=== PATIENT | male | born 1980 | race Caucasian/White ===

== ENCOUNTER 2021-04-04 14:57 | Emergency (ER) | payer BC, SELFPAY ==
--- NOTE | ~2021-04-04 | CT_ITS ---
EXAMINATION: CT abdomen pelvis wo con EXAM DATE: 04/04/2021 15:36 INDICATION: Left flank pain. History kidney stones. TECHNIQUE: Spiral CT of the abdomen and pelvis was performed without contrast. Axial, coronal and sag ittal images were reviewed. The dose-length product (DLP) for this examination was 1550.93 mGy-cm. The exposure was tailored according to patient size (auto mA exposure control), and iterative reconst ruction (ASIR) was used as additional dose reduction technique. There is no prior study for comparis on. FINDINGS: There is a 4 mm stone in the distal aspect left ureter, 3 centimeters from the ureterovesic ular junction. There is mild left-sided hydronephrosis. Additional punctate 2 mm left inferior calyce al stone. No right nephrolithiasis. The prostate is unremarkable. The bladder is unremarkable. The liver, spleen, adrenal glands and pancreas are unremarkable. Gallbladder is unremarkable. No biliar y obstruction. There is no retroperitoneal or pelvic lymphadenopathy. Small to moderate right ingu inal, small left inguinal fat-containing hernias. The appendix is normal. The stomach and small bowel are unremarkable. There is expected amount of c olonic stool. No free intraperitoneal gas. The heart is normal in size. There are no pericardial or pleural effusions. The lung bases are unremarkable. There are no osteoblastic or osteolytic les ions identified. IMPRESSION: 1. Left distal ureteral 4 mm stone, mild hydronephrosis. Urologist would appreciate baseline KUB. 2. Punctate left nephrolithiasis. 3. Inguinal fat-containing hernias right larger than left Reviewed, dictated and finalized at location [facility]. IMPRESSION: 1. Left distal ureteral 4 mm stone, mild hydronephrosis. Urologist would appre ciate baseline KUB. 2. Punctate left nephrolithiasis. 3. Inguinal fat-containing hernias right larger than left
[2021-04-04 15:00] VITALS: BP 159/113; PULSE 107; RESP 16; TEMP 36.8; O2SAT 98
[2021-04-04] MEDS: KETOROLAC 30 MG/ML VIAL (*BKC) IV PUSH (15:31)
[2021-04-04] MEDS: SODIUM CHLORIDE 0.9% IV 1,000 ML 999 ML IV CONT (15:32)
[2021-04-04 15:33] LABS: Add Urine Microscopic? YES; Appearance Urine Turbid (Clear); Basophils Absolute Auto 0.02 K/mm3 (0.00-0.10); Basophils Percent Auto 0.2 % (0.0-1.0); Bilirubin Urine 1+ (Negative); Blood Urine 3+ (Negative); Color Urine Brown (Yellow); Eosinophils Absolute Auto 0.09 K/mm3 (0.02-0.50); Eosinophils Percent Auto 0.9 % (1.0-6.0); Glucose Urine UA Negative (Negative); Hematocrit 42.5 % (40.0-54.0); Hemoglobin 14.3 g/dL (14.0-18.0); Immature Granulocyte Absolute 0.02 K/mm3 (0.00-0.00); Immature Granulocyte Percent A 0.2 % (0.0-0.0); Ketones Urine Negative (Negative); Leukocyte Esterase Ur Negative (Negative); Lymphocytes Absolute Auto 2.42 K/mm3 (1.10-4.50); Lymphocytes Percent Auto 25.2 % (18.0-42.0); Mean Corpuscular HGB Conc 33.6 g/dL (32.0-36.0); Mean Corpuscular Hemoglobin 27.3 pg (27.0-31.0); Mean Corpuscular Volume 81.1 fL (78.0-102.0); Mean Platelet Volume 9.8 fl (8.7-11.0); Monocytes Absolute Auto 0.57 K/mm3 (0.10-0.90); Monocytes Percent Auto 5.9 % (2.0-11.0); Neutrophils Absolute Auto 6.5 K/mm3 (1.7-7.2); Neutrophils Percent Auto 67.6 % (50.0-70.0); Nitrate Urine Negative (Negative); Platelet Count Result 239 K/mm3 (150-420); Protein Urine 2+ (Negative); Red Blood Count 5.24 M/mm3 (4.70-6.10); Red Cell Distribution Width 13.9 % (11.6-14.4); Specific Grav Ur >= 1.030 (1.010-1.020); White Blood Count 9.6 K/mm3 (4.8-10.8); pH Urine 5.5 (5.0-8.0)
[2021-04-04 15:46] LABS: Bacteria Urine 2+ /hpf; Mucus Urine Heavy /lpf; RBC Urine >75 /hpf (0-2); Squamous Epithelial Cell Urine Occasional /hpf (Few); WBC Urine 0-3 /hpf (0-3)
[2021-04-04 15:51] LABS: Alanine Aminotransferase 48 U/L (16-63); Albumin Level 4.2 g/dL (3.4-5.0); Alkaline Phosphatase 99 U/L (46-116); Anion Gap 15 mmol/L (8-16); Aspartate Amino Transferase 20 U/L (15-37); Bilirubin,Total 1.1 mg/dL (0.00-1.00); Calcium 8.9 mg/dL (8.5-10.1); Carbon Dioxide 24 mmol/L (21-32); Chloride 104 mmol/L (98-108); Estimated CRCL calculation 120 ml/min; Estimated Glomerular Filt Rate > 60; Glucose 100 mg/dL (70-99); Sodium 143 mmol/L (136-145); Total Protein 7.8 g/dL (6.4-8.2)
--- NOTE | 2021-04-04 16:12 | ED.MALEGU ---
HPI - Male Genitourinary General Chief complaint: Urogenital-Male Stated complaint: possible kidney stone Source: patient Mode of arrival: ambulatory Limitations: no limitations History of Present Illness HPI Narrative: this is 40-year-old male with a history of kidney stones last kidney stone approximately 5 years ago, currently having left flank pain radiating into his left groin area with some dysuria, currently chills with no fevers no shortness of breath no nausea or vomiting patient has tried [id number] pain medication with minimal relief, rates his pain about a 7/10. Onset (ago): day(s) Duration: constant Severity: moderate Severity scale (1-10): 7 Quality: dull Related Data Home Medications Medication Instructions Recorded Confirmed atorvastatin 20 mg PO DAILY 04/04/21 04/04/21 hydrochlorothiazide 12.5 mg PO DAILY 04/04/21 04/04/21 lisinopril 10 mg PO DAILY 04/04/21 04/04/21 sertraline 50 mg PO DAILY 04/04/21 04/04/21 Allergies Allergy/AdvReac Type Severity Reaction Status Date / Time No Known Allergies Allergy Unverified 10/22/16 16:37 Review of Systems Review of Systems: All systems reviewed & are unremarkable except as noted in HPI and below [facility] Past Medical History Medical History Kidney stone on left side Exam Const: General: no acute distress and alert Limitations: altered mental status HENMT: Head: normal to inspection Eyes: Conjunctivae: conjunctivae normal Pupils: Equal, round and reactive pupils present EOM: EOMs intact bilaterally Neck: Neck: normal visual inspection, no lymphadenopathy and no meningeal signs Chest: Chest palpation & inspection: normal inspection of the chest Resp: Effort & Inspection: normal respiratory effort Auscultation: clear to auscultation bilaterally Cardio: Rate: regular rate Rhythm: regular rhythm GI: GI Palp: Yes Soft to palpation and Yes Tenderness to palpation present (GI) : General: Yes CVA tenderness ( left flank) Urinary Catheter: Urinary Catheter: urine dark Back/Spine/Pelvis: Back: CVA tenderness Skin: General skin exam: normal color Rashes: no rashes Neuro: General: patient oriented x3, moves all extremities and no meningeal signs Psych: Appearance: grossly normal Mental Status: mental status grossly normal Affect: normal affect Course Course Emergency Course: patient received IV fluids and IV Toradol pain has some improved, CT findings and labs were reviewed with patient and does have a 4mm stone in the left distal ureter. Vital Signs Vital signs: Vital Signs Temperature 36.8 C 04/04/21 15:00 Pulse Rate 107 H 04/04/21 15:00 Respiratory Rate 16 04/04/21 15:00 Blood Pressure 159/113 H 04/04/21 15:00 Pulse Oximetry 98 04/04/21 15:00 Temperature 36.8 C 04/04/21 15:00 Pulse Rate 107 H 04/04/21 15:00 Respiratory Rate 16 04/04/21 15:00 Blood Pressure 159/113 H 04/04/21 15:00 Pulse Oximetry 98 04/04/21 15:00 MDM - Male Genitourinary Lab Data Result diagrams: 04/04/21 15:26 04/04/21 15:26 Labs: Lab Results 04/04/21 04/04/21 04/04/21 Range/Units 15:26 15:26 15:26 WBC 9.6 (4.8-10.8) K/mm3 RBC 5.24 (4.70-6.10) M/mm3 Hgb 14.3 (14.0-18.0) g/dL Hct 42.5 (40.0-54.0) % MCV 81.1 (78.0-102.0) fL MCH 27.3 (27.0-31.0) pg MCHC 33.6 (32.0-36.0) g/dL RDW 13.9 (11.6-14.4) % Plt Count 239 (150-420) K/mm3 MPV 9.8 (8.7-11.0) fl Immature Gran % (Auto) 0.2 H (0.0-0.0) % Neut % (Auto) 67.6 (50.0-70.0) % Lymph % (Auto) 25.2 (18.0-42.0) % Mobile % (Auto) 5.9 (2.0-11.0) % Eos % (Auto) 0.9 L (1.0-6.0) % Baso % (Auto) 0.2 (0.0-1.0) % Lymph # (Auto) 2.42 (1.10-4.50) K/mm3 Mobile # (Auto) 0.57 (0.10-0.90) K/mm3 Eos # (Auto) 0.09 (0.02-0.50) K/mm3 Baso # (Auto) 0.02 (0.00-0.10) K/mm3 Abs Immat Gran (auto) 0.02 H
[2021-04-04 16:17] VITALS: BP 150/78; PULSE 92; RESP 19; O2SAT 98
[2021-04-04 16:37] VITALS: BP 152/88; PULSE 88; RESP 18; TEMP 36.6; O2SAT 98
[2021-04-04 17:14] LABS: Blood Urea Nitrogen 16 mg/dL (7-18); Osmolality Calculated 297 mOsm/kg (285-295)
== END 2021-04-04 16:38 | disposition home or self-care (01) ==
PROVIDERS: Emergency Provider Emergency Medicine; PCP Family Medicine
DX: N20.0 Calculus of kidney (principal)
CPT/HCPCS: 36415; 74176; 80053; 81001; 85025; 96361; 96374; 99283; 99284; J1885; J7030

== ENCOUNTER 2022-02-26 05:44 | Emergency (ER) | payer BC, SELFPAY ==
--- NOTE | ~2022-02-26 | CT_ITS ---
EXAMINATION: CT abdomen pelvis wo con DATE: 02/26/2022 06:22 INDICATION: Left flank pain for 3 hours. Hematuria. History of stones. TECHNIQUE: Computed tomography (CT) of the abdomen and pelvis was performed without intravenous contr ast. Automated exposure control and iterative reconstruction technique were employed. Exam dose: 841 .34 mGy-cm total exam DLP. COMPARISON: 04/04/2021 CT abdomen pelvis FINDINGS: 3 mm distal left ureteral calculus is noted with mild left hydroureteronephrosis. 4 mm nonobstructing lower pole left renal calculus. No other urinary tract calculus. The lung bases are clear. Heart size is within normal range. No pericardial or pleural effusion. The liver, gallbladder, bile ducts, pancreas, pancreatic duct and spleen are unremarkable. Normal morphology of the adrenal glands. No renal mass lesion is evident. Normal caliber of the abdominal aorta. No intraperitoneal or retroperitoneal or pelvic mass lesion or adenopathy or ascites. The prostate gland and urinary bladder are unremarkable. Bilateral fat-containing inguinal hernias, larger on the right. Normal appendix. No bowel obstruction, bowel wall thickening, pneumatosis or intraperitoneal free air . Small fat-containing umbilical hernia. No suspicious osteolytic lesions. Moderately severe degenerative disc disease at L5-S1. IMPRESSION: 3 mm obstructing distal left ureteral stone with mild left hydroureteronephrosis Nonobstructing lower pole 4 mm left renal calculus Bilateral fat-containing inguinal hernias, right greater than left Reviewed, dictated and finalized at [facility]. Reviewed, dictated and finalized at location [facility]. IMPRESSION: 3 mm obstructing distal left ureteral stone with mild left hydrour eteronephrosis Nonobstructing lower pole 4 mm left renal calculus Bilateral fat-containing inguinal hernias, right greater than left
[2022-02-26 05:45] VITALS: BP 137/81; PULSE 88; RESP 18; TEMP 36.9; O2SAT 98
[2022-02-26] MEDS: ONDANSETRON HCL ODT 4 MG TABLET PO (06:06)
[2022-02-26] MEDS: KETOROLAC (*BKC) 60 MG/2 ML VIAL IM (06:06)
[2022-02-26 06:10] LABS: Hematocrit 42.4 % (40.0-54.0); Mean Corpuscular Hemoglobin 27.4 pg (27.0-31.0); Mean Platelet Volume 9.9 fl (8.7-11.0); Platelet Count Result 233 K/mm3 (150-420); Red Blood Count 5.11 M/mm3 (4.70-6.10); White Blood Count 8.6 K/mm3 (4.8-10.8)
[2022-02-26 06:13] LABS: Add Urine Microscopic? YES; Appearance Urine Cloudy (Clear); Bilirubin Urine Negative (Negative); Blood Urine 3+ (Negative); Color Urine Yellow (Yellow); Glucose Urine UA 2+ (Negative); Ketones Urine Negative (Negative); Leukocyte Esterase Ur Negative (Negative); Nitrate Urine Negative (Negative); Protein Urine Trace (Negative); Specific Grav Ur >= 1.030 (1.010-1.020)
[2022-02-26 06:20] LABS: Bacteria Urine Trace /hpf; Mucus Urine Rare /lpf; RBC Urine >75 /hpf (0-2); Squamous Epithelial Cell Urine None seen /hpf (Few); WBC Urine 0-3 /hpf (0-3)
[2022-02-26 06:26] LABS: Alanine Aminotransferase 52 U/L (16-63); Albumin Level 3.8 g/dL (3.4-5.0); Alkaline Phosphatase 103 U/L (46-116); Anion Gap 7 mmol/L (8-16); Aspartate Amino Transferase 30 U/L (15-37); Bilirubin,Total 0.9 mg/dL (0.00-1.00); Blood Urea Nitrogen 13 mg/dL (7-18); CRP 0.8 mg/dL (0.0-0.9); Calcium 8.7 mg/dL (8.5-10.1); Carbon Dioxide 26 mmol/L (21-32); Chloride 104 mmol/L (98-108); Estimated CRCL calculation 123 ml/min; Estimated Glomerular Filt Rate > 60; Glucose 128 mg/dL (70-99); Osmolality Calculated 286 mOsm/kg (285-295); Potassium 3.9 mmol/L (3.5-5.1); Sodium 137 mmol/L (136-145); Total Protein 7.4 g/dL (6.4-8.2)
--- NOTE | 2022-02-26 06:35 | ED.ABDPAIN ---
HPI - Abdominal Pain General Chief Complaint: Nausea/Vomiting/Diarrhea Stated Complaint: possible kidney stone Time Seen by Provider: 02/26/22 06:00 Source: patient and RN notes reviewed Mode of arrival: ambulatory Limitations: no limitations History of Present Illness HPI narrative: Patient states he had some pain yesterday that went away and then it came back more severe at 3:00 a.m. this morning. MD elicited complaint: flank pain Pertinent past history: kidney stones Onset (ago): day(s) (1) Pain Consistency: intermittent Location: L flank Severity: moderate Quality: stabbing and sharp Radiation: none Migration to: no migration Exacerbating factors: movement Relieving factors: nothing Associated symptoms: nausea and vomiting Related Data Home Medications Medication Instructions Recorded Confirmed atorvastatin 20 mg tablet 20 mg PO DAILY 04/04/21 02/26/22 hydrochlorothiazide 12.5 mg tablet 12.5 mg PO DAILY 04/04/21 02/26/22 lisinopril 10 mg tablet 10 mg PO DAILY 04/04/21 02/26/22 sertraline 50 mg tablet 50 mg PO DAILY 04/04/21 02/26/22 Allergies Allergy/AdvReac Type Severity Reaction Status Date / Time No Known Allergies Allergy Verified 02/26/22 05:58 Review of Systems Review of Systems: All systems reviewed & are unremarkable except as noted in HPI and below PMFSH Past Medical History Medical History (Updated 02/26/22 @ 06:45 by Aryan Epps MD) Kidney stone on left side Surgical History Surgical History (Updated 02/26/22 @ 06:42 by Aryan Epps MD) H/O hand surgery H/O lithotripsy Exam Const: General: healthy appearing, no acute distress and alert Nutritional Appearance: well nourished and obese centrally obese Orientation/consciousness: patient oriented x3 Limitations: no limitations HENMT: Head: normal to inspection Ears: external ears normal Eyes: Conjunctivae: conjunctivae normal Pupils: Equal, round and reactive pupils present EOM: EOMs intact bilaterally Neck: Neck: normal visual inspection Resp: Effort & Inspection: normal respiratory effort Auscultation: clear to auscultation bilaterally Cardio: Rate: regular rate Rhythm: regular rhythm GI: GI Palp: Yes Soft to palpation and Yes Tenderness to palpation present (GI) Auscultation: normal bowel sounds Back/Spine/Pelvis: Back: CVA tenderness ( moderate on the left) Cervical Spine: cervical ROM normal Thoracic/Lumbar Spine: thoraco-lumbar ROM normal Skin: General skin exam: normal color Rashes: no rashes Wounds: no wounds Neuro: General: patient oriented x3, moves all extremities, no focal motor deficits and CN's II-XI intact bilaterally Speech: normal speech Gait exam (Neuro): Normal gait present Extrem: General: normal to inspection and no clubbing, cyanosis or edema Psych: Mental Status: mental status grossly normal Affect: normal affect Attitude: cooperative Course Vital Signs Vital signs: Vital Signs Temperature 36.9 C 02/26/22 05:45 Pulse Rate 88 02/26/22 05:45 Respiratory Rate 18 02/26/22 05:45 Blood Pressure 137/81 02/26/22 05:45 Pulse Oximetry 98 02/26/22 05:45 Oxygen Delivery Room Air 02/26/22 05:45 Temperature 36.9 C 02/26/22 05:45 Pulse Rate 88 02/26/22 05:45 Respiratory Rate 18 02/26/22 05:45 Blood Pressure 137/81 02/26/22 05:45 Pulse Oximetry 98 02/26/22 05:45 Oxygen Delivery Room Air 02/26/22 05:45 MDM - Abdominal Pain Lab Data Result diagrams: 02/26/22 06:06 02/26/22 06:06 Labs: Lab Results 02/26/22 02/26/22 02/26/22 Range/Units 06:06 06:06 06:06 WBC 8.6 (4.8-10.8) K/mm3 RBC 5.11 (4.70-6.10) M/mm3 Hgb 14.0 (14.0-18.0) g/dL Hct 42.4 (40.0-54.0) % MCV 83.0 (78.0-102.0) fL MCH 27.4 (27.0-31.0) pg MCHC 33.0 (32.0-36.0) g/dL RDW 14.0 (11.6-14.4) % Plt Count 233 (150-420) K/mm3 MPV 9.9 (8.7-11.0) fl Sodium 137 (136-145) mmol/L Potassium
[2022-02-26 07:13] VITALS: BP 116/56; PULSE 72; RESP 17; TEMP 36.6; O2SAT 97
== END 2022-02-26 07:15 | disposition home or self-care (01) ==
PROVIDERS: Emergency Provider Emergency Medicine; PCP Family Medicine
DX: N20.0 Calculus of kidney (principal)
CPT/HCPCS: 36415; 74176; 80053; 81001; 85027; 86140; 96372; 99284; A9270; J1885

== ENCOUNTER 2023-08-14 17:57 | Emergency (ER) | payer BC, SELFPAY ==
--- NOTE | ~2023-08-14 | CT_ITS ---
EXAMINATION: CT abdomen pelvis wo con DATE: 08/14/2023 18:31 INDICATION: LUQ abdominal pain/HX OF STONES TECHNIQUE: Computed tomography (CT) of the abdomen and pelvis was performed without intravenous contr ast. Automated exposure control and iterative reconstruction technique were employed. The dose-length product was 1625.20 mGy-cm. COMPARISON: 02/26/2022. FINDINGS: Lower thorax: Unremarkable Liver: Normal. Biliary/Gallbladder: Gallbladder is normal. No bile duct dilation. Pancreas: No mass or duct dilation. Spleen: Normal. Adrenals:No mass. Kidneys: No suspicious mass, obstructing stone, or hydronephrosis. Nonobstructing stones in the left right midpole. GI tract: No small or large bowel dilation. Normal appendix. Mesentery/Peritoneum: No ascites, mass, or free air. Retroperitoneum: No mass. Pelvis: Pelvic organs are within normal limits. Soft Tissues: Uncomplicated bilateral fat-containing inguinal hernias. Bones: No acute osseous finding. IMPRESSION: Bilateral nonobstructive nephrolithiasis. No CT evidence of obstructive uropathy finding that would explain left upper quadrant pain. Reviewed, dictated and finalized at location [facility]. EDWARDS IMPRESSION: Bilateral nonobstructive nephrolithiasis. No CT evidence of obstructive uropathy finding that would explain left upper qu adrant pain.
[2023-08-14 17:58] VITALS: BP 142/75; PULSE 75; RESP 19; TEMP 36.3; O2SAT 98
[2023-08-14 18:02] VITALS: BP 142/75; PULSE 75; RESP 19; TEMP 36.3; O2SAT 98
--- NOTE | 2023-08-14 18:12 | ED.ABDPAIN ---
HPI - Abdominal Pain General Chief Complaint: Abdominal Pain Stated Complaint: abdominal pain Time Seen by Provider: 08/14/23 18:01 History of Present Illness HPI narrative: This is a 42-year-old male with history of kidney stones, who presents emergency department complaining of left upper quadrant abdominal pain since last night. The patient describes the pain as dull, rated 5/10 and constant, beginning in the upper left abdomen with some radiation towards the left lower chest. He states this feels similar to previous kidney stones, however the pain is not moved towards his back. He denies nausea, vomiting, dysuria, hematuria or other changes in his health. Related Data Home Medications Medication Instructions Recorded Confirmed atorvastatin 20 mg tablet 20 mg PO DAILY 04/04/21 08/14/23 hydrochlorothiazide 12.5 mg tablet 12.5 mg PO DAILY 04/04/21 08/14/23 lisinopril 10 mg tablet 10 mg PO DAILY 04/04/21 08/14/23 sertraline 50 mg tablet 50 mg PO DAILY 04/04/21 08/14/23 Allergies Allergy/AdvReac Type Severity Reaction Status Date / Time No Known Allergies Allergy Verified 08/14/23 18:00 Review of Systems Review of Systems: CONSTITUTIONAL: Denies fever, chills, or sweats. CARDIOVASCULAR: Denies chest pain, palpitations, or edema. RESPIRATORY: Denies cough or dyspnea. GASTROINTESTINAL: Left upper quadrant abdominal pain denies nausea, vomiting, or diarrhea. GENITOURINARY: Denies dysuria or hematuria. SKIN: Denies rash or itching. MUSCULOSKELETAL: Denies back pain, joint pain, or myalgia. NEUROLOGIC: Denies headache, numbness, dizziness, or weakness. PSYCHIATRIC: Denies anxiety or depression. PMFSH Past Medical History Medical History Kidney stone on left side Surgical History Surgical History H/O hand surgery H/O lithotripsy Social History Social History (Updated 08/14/23 @ 18:15 by Bunny Pierce MD) Smoking status: Never smoker Alcohol intake: never Substance use: never Exam Narrative: GENERAL: Well-developed, well-nourished, and in no acute distress. HEAD: Normocephalic, atraumatic. EYES: PERRLA and EOMI. ENT: Nares clear, no rhinorrhea or epistaxis. Mucous membranes moist. Oropharynx without tonsillar hypertrophy exudate or other lesions. CHEST: Clear to auscultation. No respiratory distress. No wheezes rales or rhonchi HEART: Regular rate and rhythm. No murmur heard. Normal peripheral pulses. ABDOMEN: Soft, mild tenderness to palpation in the left upper quadrant, without rebound or guarding, nondistended, normal active bowel sounds. No CVA tenderness to palpation EXTREMITIES: Normal range of motion. No edema. SKIN: Warm, dry, no rash. NEURO: Alert and oriented x3. Moving all 4 limbs purposefully. PSYCH: Normal mood and affect. Course Course Emergency Course: 19:40 - CT abdomen pelvis demonstrates bilateral nephrolithiasis without ureteral stone or other acute changes that could explain the patient's pain. CBC demonstrates mild anemia with hemoglobin 13.3 and slight neutrophil shift of 71% but is otherwise unremarkable. Chemistries demonstrate mild total bilirubin elevation at 1.8 but is otherwise unremarkable. UA demonstrates 1+ bacteria with squamous cells but is not concerning for significant hematuria or urinary tract infection. On reevaluation, the patient states his pain is improved. The cause of the patient's pain is unclear. Will discharge with a PPI and recommendation for primary care follow-up. Discussed return and emergency precautions including signs/symptoms of ACS and acute abdomen. The patient voiced understanding and is comfortable with the plan. All questions answered to his satisfaction. Vital Signs Vital signs: Vital Signs Oxygen Delivery Room Air 08/14/23 17:57 Temperature 97.4 F L 08/14/23 18:02 Pulse Rate 75 08/14/23 18
[2023-08-14] MEDS: MAG HYDROX/ALUMINUM HYD/SIMETH 30 ML, PHENobarb/HYOSCY/ATROPINE/SCOP 32.4 MG, LIDOCAINE... PO (18:19)
[2023-08-14] MEDS: ACETAMINOPHEN 500 MG TABLET 1000 MG PO (18:19)
[2023-08-14] MEDS: SODIUM CHLORIDE 0.9% IV 1,000 ML 999 ML IV CONT (18:23)
[2023-08-14 18:25] LABS: Basophils Absolute Auto 0.02 K/mm3 (0.00-0.10); Basophils Percent Auto 0.2 % (0.0-1.0); Eosinophils Absolute Auto 0.11 K/mm3 (0.02-0.50); Eosinophils Percent Auto 1.1 % (1.0-6.0); Hemoglobin 13.3 g/dL (14.0-18.0); Immature Granulocyte Absolute 0.04 K/mm3 (0.00-0.00); Immature Granulocyte Percent A 0.4 % (0.0-0.0); Lymphocytes Absolute Auto 2.09 K/mm3 (1.10-4.50); Lymphocytes Percent Auto 21.2 % (18.0-42.0); Mean Corpuscular HGB Conc 33.3 g/dL (32.0-36.0); Mean Corpuscular Hemoglobin 27.1 pg (27.0-31.0); Mean Corpuscular Volume 81.5 fL (78.0-102.0); Mean Platelet Volume 9.5 fl (8.7-11.0); Monocytes Absolute Auto 0.57 K/mm3 (0.10-0.90); Monocytes Percent Auto 5.8 % (2.0-11.0); Neutrophils Percent Auto 71.3 % (50.0-70.0); Platelet Count Result 217 K/mm3 (150-420); Red Blood Count 4.91 M/mm3 (4.70-6.10); Red Cell Distribution Width 13.9 % (11.6-14.4); White Blood Count 9.8 K/mm3 (4.8-10.8)
[2023-08-14 18:41] LABS: Anion Gap 7 mmol/L (8-16); Blood Urea Nitrogen 16 mg/dL (7-18); Carbon Dioxide 31 mmol/L (21-32); Chloride 101 mmol/L (98-108); Estimated CRCL calculation 109 ml/min; Estimated Glomerular Filt Rate > 60; Glucose 89 mg/dL (70-99); Osmolality Calculated 288 mOsm/kg (285-295); Potassium 3.5 mmol/L (3.5-5.1); Sodium 139 mmol/L (136-145)
[2023-08-14 18:42] LABS: Alanine Aminotransferase 44 U/L (16-63); Albumin Level 3.7 g/dL (3.4-5.0); Alkaline Phosphatase 111 U/L (46-116); Aspartate Amino Transferase 36 U/L (15-37); Bilirubin,Total 1.8 mg/dL (0.00-1.00); Calcium 8.9 mg/dL (8.5-10.1); Lipase 51 U/L (16-77); Total Protein 7.1 g/dL (6.4-8.2)
--- NOTE | 2023-08-14 18:59 | PC.NURSE ---
PT IS LYING ON STRETCHER WITH AT BEDSIDE. PT HAS IVF INFUSING WITHOUT DIFFICULTY. PT REPORTS MILD IMPROVEMENT OF PAIN. PT IS AWAITING RESULTS AT THIS TIME. PT DENIES ANY NEEDS OR COMPLAINTS. REPORT TO LAVERNE ELIZALDE.
[2023-08-14 19:07] VITALS: BP 134/81; PULSE 84; RESP 20; O2SAT 98
[2023-08-14] MEDS: KETOROLAC 30 MG/ML VIAL (*BKC) IV PUSH (19:17)
[2023-08-14 19:26] LABS: Appearance Urine Clear (Clear); Bilirubin Urine Negative (Negative); Blood Urine Negative (Negative); Color Urine Yellow (Yellow); Glucose Urine UA Negative (Negative); Ketones Urine Negative (Negative); Leukocyte Esterase Ur Negative LEU/UL (Negative); Nitrate Urine Negative (Negative); Protein Urine Trace (Negative); Specific Grav Ur >= 1.030 (1.010-1.020)
[2023-08-14 19:32] LABS: Add Urine Microscopic? YES; Bacteria Urine 1+ /hpf; RBC Urine 0-2 /hpf (0-2); Squamous Epithelial Cell Urine Few /hpf (Few); WBC Urine 0-3 /hpf (0-3)
[2023-08-14 19:33] LABS: Mucus Urine Moderate /lpf
[2023-08-14 19:49] VITALS: BP 130/81; PULSE 80; RESP 18; TEMP 36.8; O2SAT 98
== END 2023-08-14 19:53 | disposition home or self-care (01) ==
PROVIDERS: Emergency Provider Preventive Medicine Aerospace Medicine; PCP Family Medicine
DX: R10.12 Left upper quadrant pain (principal); K29.00 Acute gastritis without bleeding; Z79.899 Other long term (current) drug therapy
CPT/HCPCS: 36415; 74176; 80053; 81001; 83690; 85025; 96361; 96374; 99284; A9270; J1885; J7030

== ENCOUNTER 2023-09-25 06:43 | Emergency (ER) | payer BC, SELFPAY ==
--- NOTE | ~2023-09-25 | CT_ITS ---
EXAMINATION: CT abdomen pelvis wo con DATE: 09/25/2023 07:54 INDICATION: Right flank pain. TECHNIQUE: Computed tomography (CT) of the abdomen and pelvis was performed without intravenous contr ast. Automated exposure control and iterative reconstruction technique were employed. The dose-length product was 1641.08 mGy-cm. COMPARISON: CT abdomen and pelvis 08/14/2023 FINDINGS: The visualized portions of the lung bases demonstrate mild atelectasis. A calcified right l nathalia nodule is consistent with old granulomatous disease. No pleural effusion. The heart size is irene l. No pericardial effusion. There is diffuse hepatic steatosis. The gallbladder, spleen, pancreas, an d adrenal glands are normal. There is mild right hydronephrosis. There is a 4 mm stone in proximal ri ght ureter. There is a 5 mm stone in left kidney. There are bilateral inguinal hernias containing fat . The appendix is normal. There are no dilated loops of bowel. There are no pathologically enlarged l ymph nodes. There is no free intraperitoneal fluid. There is mild thoracic spondylosis. There is mode rate lower lumbar spondylosis. IMPRESSION: 1. 4 mm stone in proximal right ureter with mild right hydronephrosis. 2. Nonobstructing left kidney stone. Reviewed, dictated and finalized at location [facility]. R RELATIONS OFFICER
[2023-09-25 06:43] VITALS: BP 139/92; PULSE 91; RESP 20; TEMP 36.6; O2SAT 95
--- NOTE | 2023-09-25 07:31 | ED.MALEGU ---
HPI - Male Genitourinary General Chief complaint: Urogenital-Male Stated complaint: kidney stone Time Seen by Provider: 09/25/23 07:18 Source: patient Mode of arrival: ambulatory Limitations: no limitations History of Present Illness HPI Narrative: Patient is a 42-year-old male with known renal stones. He is here with right flank and back pain. MD Complaint: testicle pain Onset (ago): day(s) (1) Duration: constant and intermittent Location: right testicle Radiation: right testicle Severity: moderate Severity scale (1-10): 7 Quality: sharp Relieving factors: movement Exacerbating factors: movement Associated symptoms: Reports nausea/vomiting Related Data Home Medications Medication Instructions Recorded Confirmed atorvastatin 20 mg tablet 20 mg PO DAILY 04/04/21 09/25/23 hydrochlorothiazide 12.5 mg tablet 12.5 mg PO DAILY 04/04/21 09/25/23 lisinopril 10 mg tablet 10 mg PO DAILY 04/04/21 09/25/23 sertraline 50 mg tablet 50 mg PO DAILY 04/04/21 09/25/23 Allergies Allergy/AdvReac Type Severity Reaction Status Date / Time No Known Allergies Allergy Verified 09/25/23 07:43 Review of Systems Review of Systems: All systems reviewed & are unremarkable except as noted in HPI and below Constitutional: Constitutional: Reports no additional constitutional complaints Eyes: Eyes: Reports no additional eye complaints ENT: Reports system reviewed and no additional complaints, except as documented Cardiovascular: Cardiovascular: Reports no additional cardiovascular complaints Respiratory: Respiratory: Reports no additional respiratory complaints Gastrointestinal: Gastrointestinal: Reports no additional gastrointestinal complaints Genitourinary: Genitourinary: Reports no additional male genitourinary complaints Musculoskeletal: Musculoskeletal: Reports no additional musculoskeletal complaints Integumentary/Breasts: Skin/Breast: Reports system reviewed and no additional complaints, except as docu Neurologic: Reports system reviewed and no additional complaints, except as documented Psychiatric: Psychiatric: Reports no additional psychiatric complaints Endocrine: Endocrine: Reports no additional endocrine complaints Hematologic/Lymphatic: Hematologic/Lymphatic: Reports no additional hematologic/lymphatic complaints Allergic/Immunologic: Allergic/Immunologic: Reports no additional allergic/immunologic complaints PMFSH Past Medical History Medical History Kidney stone on left side Surgical History Surgical History H/O hand surgery H/O lithotripsy Social History Social History Smoking status: Never smoker Alcohol intake: never Substance use: never Exam Const: General: ill appearing Nutritional Appearance: well nourished Limitations: no limitations HENMT: Head: normal to inspection Ears: TM's normal bilaterally Face/Nose/Sinus: Normal external nose present Eyes: Conjunctivae: conjunctivae normal Pupils: Equal, round and reactive pupils present EOM: EOMs intact bilaterally Neck: Neck: normal visual inspection Chest: Chest palpation & inspection: normal inspection of the chest Resp: Effort & Inspection: normal respiratory effort and not labored Auscultation: clear to auscultation bilaterally and no crackles Cardio: Rate: regular rate Rhythm: regular rhythm Heart sounds: no murmurs GI: Inspection: non-distended GI Palp: Yes Soft to palpation, Yes Tenderness to palpation present (GI) (right lower quadrant and right flank and right back), No Guarding due to palpation present (GI), No Rigid due to palpation and No Hernia present Auscultation: normal bowel sounds : General: Yes bladder normal to palpation Back/Spine/Pelvis: Back: No no CVA tenderness and CVA tenderness (right) Skin: General skin exam: normal color Mike
[2023-09-25] MEDS: KETOROLAC 30 MG/ML VIAL (*BKC) IV PUSH (07:48)
[2023-09-25 07:51] LABS: Basophils Absolute Auto 0.01 K/mm3 (0.00-0.10); Basophils Percent Auto 0.2 % (0.0-1.0); Eosinophils Absolute Auto 0.01 K/mm3 (0.02-0.50); Eosinophils Percent Auto 0.2 % (1.0-6.0); Hematocrit 44.3 % (40.0-54.0); Hemoglobin 14.7 g/dL (14.0-18.0); Immature Granulocyte Absolute 0.02 K/mm3 (0.00-0.00); Immature Granulocyte Percent A 0.3 % (0.0-0.0); Lymphocytes Absolute Auto 0.62 K/mm3 (1.10-4.50); Lymphocytes Percent Auto 9.4 % (18.0-42.0); Mean Corpuscular HGB Conc 33.2 g/dL (32.0-36.0); Mean Corpuscular Hemoglobin 27.2 pg (27.0-31.0); Mean Corpuscular Volume 81.9 fL (78.0-102.0); Mean Platelet Volume 9.2 fl (8.7-11.0); Monocytes Percent Auto 6.1 % (2.0-11.0); Neutrophils Absolute Auto 5.5 K/mm3 (1.7-7.2); Neutrophils Percent Auto 83.8 % (50.0-70.0); Platelet Count Result 218 K/mm3 (150-420); Red Blood Count 5.41 M/mm3 (4.70-6.10); Red Cell Distribution Width 14.2 % (11.6-14.4); White Blood Count 6.6 K/mm3 (4.8-10.8)
[2023-09-25 08:10] LABS: Alanine Aminotransferase 44 U/L (16-63); Albumin Level 4.2 g/dL (3.4-5.0); Alkaline Phosphatase 107 U/L (46-116); Anion Gap 10 mmol/L (8-16); Aspartate Amino Transferase 21 U/L (15-37); Bilirubin,Total 2.4 mg/dL (0.00-1.00); Blood Urea Nitrogen 21 mg/dL (7-18); Calcium 9.4 mg/dL (8.5-10.1); Carbon Dioxide 28 mmol/L (21-32); Chloride 97 mmol/L (98-108); Estimated CRCL calculation 83 ml/min; Estimated Glomerular Filt Rate 52; Glucose 142 mg/dL (70-99); Lipase 45 U/L (16-77); Osmolality Calculated 285 mOsm/kg (285-295); Potassium 3.5 mmol/L (3.5-5.1); Sodium 135 mmol/L (136-145); Total Protein 7.9 g/dL (6.4-8.2)
[2023-09-25] MEDS: SODIUM CHLORIDE 0.9% IV 1,000 ML 999 ML IV CONT (08:21)
[2023-09-25] MEDS: TAMSULOSIN HCL 0.4 MG CAPSULE PO (08:22)
[2023-09-25 08:58] LABS: Appearance Urine Cloudy (Clear); Bilirubin Urine 1+ (Negative); Blood Urine 3+ (Negative); Glucose Urine UA Negative (Negative); Ketones Urine Trace (Negative); Leukocyte Esterase Ur Negative LEU/UL (Negative); Nitrate Urine Negative (Negative); Protein Urine 3+ (Negative); Specific Grav Ur >= 1.030 (1.010-1.020); pH Urine 5.5 (5.0-8.0)
[2023-09-25 09:07] LABS: Add Urine Microscopic? YES; Bacteria Urine 1+ /hpf; Color Urine Amber (Yellow); RBC Urine 21-50 /hpf (0-2)
[2023-09-25 09:26] VITALS: BP 116/56; PULSE 76; RESP 18; TEMP 36.8; O2SAT 100
--- NOTE | 2023-09-25 09:26 | PC.NURSE ---
PT HAS AT BEDSIDE, REPORTS PAIN REMAINS AT A 2. IVF HAVE COMPLETED. PT DENIES ANY NEEDS OR COMPLAINTS. PT HAS ONLY EATEN APPROX 1/4 CUPS OF THE ICE CHIPS PROVIDED. WILL CONTINUE TO MONITOR.
== END 2023-09-25 09:35 | disposition home or self-care (01) ==
PROVIDERS: Emergency Provider Emergency Medicine
DX: N20.0 Calculus of kidney (principal); Z79.899 Other long term (current) drug therapy
CPT/HCPCS: 36415; 74176; 80053; 81001; 83690; 85025; 96361; 96374; 99284; A9270; J1885; J7030

== ENCOUNTER 2023-09-26 15:29 | Emergency (ER) | payer BC, SELFPAY ==
[2023-09-26 15:30] VITALS: BP 127/74; PULSE 88; RESP 20; TEMP 36.8; O2SAT 98
--- NOTE | 2023-09-26 15:33 | ED.ABDPAIN ---
HPI - Abdominal Pain General Chief Complaint: Urogenital-Male Stated Complaint: right side flank pain, kidney stone Source: patient Mode of arrival: ambulatory Limitations: no limitations History of Present Illness HPI narrative: 42-year-old male with a history of dyslipidemia, recurrent kidney stones presented to the ER yesterday with -- right flank pain. CT of the abdomen and pelvis revealed a 4 mm stone in the right proximal ureter. His pain resolved with IV Toradol. The patient was also noted to have an elevated creatinine of 1.49. He was discharged home on Flomax and Columbia. He presents to the ER with -- ongoing right flank pain without any relief with Columbia. MD elicited complaint: flank pain Pertinent past history: kidney stones Onset (ago): day(s) ( 2 days) Pain Consistency: intermittent Location: R flank Severity: severe Quality: cramping Radiation: other ( pain radiates from the right flank to the right iliac fossa) Exacerbating factors: nothing Relieving factors: nothing Associated symptoms: nausea Related Data Home Medications Medication Instructions Recorded Confirmed atorvastatin 20 mg tablet 20 mg PO DAILY 04/04/21 09/25/23 hydrochlorothiazide 12.5 mg tablet 12.5 mg PO DAILY 04/04/21 09/25/23 lisinopril 10 mg tablet 10 mg PO DAILY 04/04/21 09/25/23 sertraline 50 mg tablet 50 mg PO DAILY 04/04/21 09/25/23 Allergies Allergy/AdvReac Type Severity Reaction Status Date / Time No Known Allergies Allergy Verified 09/25/23 07:43 Review of Systems Review of Systems: All systems reviewed & are unremarkable except as noted in HPI and below Constitutional: Constitutional: Reports as per HPI and Reports no additional constitutional complaints Eyes: Eyes: Reports as per HPI and Reports no additional eye complaints ENT: Reports system reviewed and no additional complaints, except as documented and Reports as per HPI Cardiovascular: Cardiovascular: Reports as per HPI and Reports no additional cardiovascular complaints Respiratory: Respiratory: Reports as per HPI and Reports no additional respiratory complaints Gastrointestinal: Gastrointestinal: Reports as per HPI, Reports no additional gastrointestinal complaints and Reports abdominal pain Genitourinary: Genitourinary: Reports no additional male genitourinary complaints Musculoskeletal: Musculoskeletal: Reports no additional musculoskeletal complaints and Reports as per HPI Integumentary/Breasts: Skin/Breast: Reports system reviewed and no additional complaints, except as docu and Reports as per HPI Neurologic: Reports system reviewed and no additional complaints, except as documented and Reports as per HPI Psychiatric: Psychiatric: Reports no additional psychiatric complaints and Reports as per HPI Endocrine: Endocrine: Reports no additional endocrine complaints and Reports as per HPI Hematologic/Lymphatic: Hematologic/Lymphatic: Reports no additional hematologic/lymphatic complaints and Reports as per HPI Allergic/Immunologic: Allergic/Immunologic: Reports no additional allergic/immunologic complaints and Reports as per HPI PMFSH Past Medical History Medical History Kidney stone on left side Surgical History Surgical History H/O hand surgery H/O lithotripsy Social History Social History Smoking status: Never smoker Alcohol intake: never Substance use: never Exam Const: General: no acute distress Nutritional Appearance: well nourished Orientation/consciousness: patient oriented x3 Limitations: no limitations HENMT: Head: normal to inspection Ears: external ears normal Face/Nose/Sinus: Normal external nose present Face and sinus: normal facial exam Mouth: Yes Normal oral and palatal mucosa present Throat: posterior oropharynx normal Eyes: Conjunctivae: conjunct
[2023-09-26 15:59] LABS: Hemoglobin 13.5 g/dL (14.0-18.0); Mean Corpuscular HGB Conc 33.8 g/dL (32.0-36.0); Mean Corpuscular Hemoglobin 27.4 pg (27.0-31.0); Mean Corpuscular Volume 81.1 fL (78.0-102.0); Mean Platelet Volume 8.9 fl (8.7-11.0); Platelet Count Result 193 K/mm3 (150-420); Red Blood Count 4.93 M/mm3 (4.70-6.10); Red Cell Distribution Width 13.9 % (11.6-14.4); White Blood Count 7.1 K/mm3 (4.8-10.8)
[2023-09-26] MEDS: TAMSULOSIN HCL 0.4 MG CAPSULE PO (16:06)
[2023-09-26] MEDS: KETOROLAC 30 MG/ML VIAL (*BKC) IV PUSH (16:06)
[2023-09-26 16:10] LABS: Anion Gap 6 mmol/L (8-16); Blood Urea Nitrogen 21 mg/dL (7-18); Calcium 8.9 mg/dL (8.5-10.1); Carbon Dioxide 30 mmol/L (21-32); Chloride 100 mmol/L (98-108); Estimated CRCL calculation 93 ml/min; Estimated Glomerular Filt Rate 60; Glucose 87 mg/dL (70-99); Osmolality Calculated 284 mOsm/kg (285-295); Potassium 3.3 mmol/L (3.5-5.1); Sodium 136 mmol/L (136-145)
[2023-09-26] MEDS: SODIUM CHLORIDE 0.9% IV 1,000 ML 999 ML IV CONT (16:12)
[2023-09-26 16:56] VITALS: BP 139/74; PULSE 78; RESP 20; TEMP 36.8; O2SAT 98
[2023-09-26] MEDS: POTASSIUM CHLORIDE 20 MEQ ER TABLET PO (16:56)
== END 2023-09-26 17:00 | disposition home or self-care (01) ==
PROVIDERS: Emergency Provider Internal Medicine Critical Care Medicine; PCP Nurse Practitioner
DX: N20.0 Calculus of kidney (principal)
CPT/HCPCS: 36415; 80048; 85027; 96374; 99284; A9270; J1885; J7030

== ENCOUNTER 2025-05-14 17:19 | Emergency (ER) | payer BC, SELFPAY ==
--- NOTE | ~2025-05-14 | XR_ITS ---
HISTORY: L elbow infection COMPARISON: None TECHNIQUE: 3 views of the left elbow were performed FINDINGS: No acute fracture is identified. No elevation of the anterior or posterior fat pads are identified to suggest a supracondylar fracture . Overlying soft tissues are unremarkable. Bone mineralization is age-appropriate. IMPRESSION: No acute fracture or dislocation, as detailed above. Reviewed, dictated and finalized at location A.
--- NOTE | ~2025-05-14 | CT_ITS ---
CT OF right femur EXAMINATION: CT femur RT w con DATE: 05/14/2025 21:24 INDICATION: Large right posterior thigh abscess TECHNIQUE: Computed tomography (CT) of the right femur was performed with 100 mL Omnipaque 350 intrav enous contrast. Automated exposure control and iterative reconstruction technique were employed. The dose-length product was 1141.10 mGy-cm. COMPARISON: None FINDINGS: Normal mineralization. No fracture or dislocation. Mild degenerative change in the right knee. 13 mm rim-enhancing dermal or subdermal fluid collection in the proximal, posteromedial thigh, with adjacen t dermal thickening, adjacent induration, and more widespread subcutaneous stranding in the proximal medial and posterior thigh. Moderate left and small right fat-containing inguinal hernias. IMPRESSION: 13 mm dermal or subdermal proximal posteromedial thigh abscess with likely adjacent phlegmon and more extensive surrounding edema or cellulitis. No deep tissue involvement or subcutaneous emphysema. Reviewed, dictated and finalized at location K. IMPRESSION: 13 mm dermal or subdermal proximal posteromedial thigh abscess with likely bouchra cent phlegmon and more extensive surrounding edema or cellulitis. No deep tissu e involvement or subcutaneous emphysema.
--- OUTSIDE RECORDS SUMMARY | 2025-05-14 17:21 | XMS_ITS | Clinical Summary ---
Author Organization [facility] Address [address] [place] [address] Care Team Providers Care Customer Data Technician Name Role Phone Mariah Rachel MD Primary Care Provider [phone] Allergies No known active allergies Medications lisinopril (PRINIVIL) 10 MG tablet Take 1 tablet (10 mg total) by mouth daily. 11/27/2022 Active hydroCHLOROthia zide (MICROZIDE) 12.5 MG capsule Take 1 capsule (12.5 mg total) by mouth every morning. 11/27/2022 Active atorvastatin (LIPITOR) 40 MG tablet Take 1 tablet (40 mg total) by mouth nightly at bedtime. 11/27/2022 Active sertraline (ZOLOFT) 50 MG tablet Take 2 tablets (100 mg total) by mouth daily. Active celecoxib (CELEBREX) 200 MG capsule Take 1 capsule (200 mg total) by mouth 2 (two) times daily. Active rosuvastatin (CRESTOR) 20 MG tablet Take 1 tablet (20 mg total) by mouth nightly at bedtime. Active allopurinol (ZYLOPRIM) 100 MG tablet Take 1 tablet (100 mg total) by mouth daily. Active tamsulosin (FLOMAX) 0.4 MG Cap Take 1 capsule (0.4 mg total) by mouth daily. Active SEMAGLUTIDE, 1 MG/DOSE, SC Active Active Problems No known active problems Social History Tobacco Use Types Packs/Day Years Used Date Smoking Tobacco: Never Smokeless Tobacco: Never Alcohol Use Standard Drinks/Week Comments Yes 0 (1 standard drink = 0.6 oz pur e alcohol) Sex and Gender Information Value Date Recorded Sex Assigned at Not on file Legal Sex Male 6:24 PM CDT Gender Identity Not on file Sexual Orientation Not on file Last Filed Vital Signs Vital Sign Reading Time Taken Comments Blood Pressure 131/71 06/06/2024 9:15 AM CDT Pulse 88 06/06/2024 9:15 AM CDT Temperature 36.3 C (97.4 F) 06/06/2024 8:50 AM CDT Respiratory Rate 16 06/06/2024 9:15 AM CDT Oxygen Saturation 98% 06/06/2024 9:15 AM CDT Inhaled Oxygen Concentration - - Weight 124.7 kg (275 lb) 05/29/2024 12:08 PM CDT Height 182.9 cm (6') 06/06/2024 7:43 AM CDT Body Mass Index 37.3 05/29/2024 12:08 PM CDT Plan of Treatment Health Maintenance Due Date Last Done Comments Annual Physical 1984 DTaP, Tdap and Td Vaccines (6 - Tdap) 04/10/1996 04/09/1996, 01/05/1987, 06/20/1983, Additional history exists Hepatitis C 12/16/1999 Hepatitis B Vaccines (1 of 3 - 19+ 3-dose series) 2000 HPV Vaccines (1 - 3-dose SCDM series) 2008 COVID-19 Vaccine ( season) 2024 Meningococcal B Vaccine Aged Out No l onger eligible based on patient's age to complete this topic Meningococcal Vaccine Aged Out No memo keith eligible based on patient's age to complete this topic Pneumococcal Vaccine: Pediatrics (0 to 5 Years) and At-Risk Patients (6 to 49 Years) Aged Out No longer eligible based on patient's age to complete this topic RSV Immunizations Under 20 Months Aged Out No longer eligible based on patient's age to complete this topic Insurance [facility] Care Teams Customer Data Technician Relationship Specialty Start Date End Date Mariah Rachel MD [place] [address] PCP - General FAMILY PRACTICE 01/26/25
--- OUTSIDE RECORDS SUMMARY | 2025-05-14 17:21 | XMS_ITS | Clinical Summary ---
Author Organization [facility] Address [address] [place] [address] Care Team Providers Care Marketing Research Intern Name Role Phone WillamsKeely DEEJAY Primary Care Provider [phone] Allergies No known active allergies Social History Tobacco Use Types Packs/Day Years Used Date Smoking Tobacco: Never Assessed Personal Safety Answer Date Recorded Have you ever been in or are you currently in a harmful physical or emotional relationship or is someone making you feel afraid or unsafe? Denies 10/02/2023 Sex and Gender Information Value Date Recorded Sex Assigned at Not on file Legal Sex Male 1:00 PM HOME HEALTH CNA Gender Identity Not on file Sexual Orientation Not on file Last Filed Vital Signs Vital Sign Reading Time Taken Comments Blood Pressure 130/74 10/03/2023 2:30 AM HOME HEALTH CNA Pulse 65 10/03/2023 2:30 AM HOME HEALTH CNA Temperature 37 C (98.6 F) 10/03/2023 2:30 AM HOME HEALTH CNA Respiratory Rate 18 10/03/2023 2:30 AM HOME HEALTH CNA Oxygen Saturation 97% 10/03/2023 2:30 AM HOME HEALTH CNA Inhaled Oxygen Concentration - - Weight 133.8 kg (295 lb) 10/02/2023 4:39 PM HOME HEALTH CNA Height - - Body Mass Index - - Plan of Treatment Health Maintenance Due Date Last Done Comments Depression Screening 1981 Hepatitis C Screening 1981 Varicella Vaccines (1 of 2 - 13+ 2-dose series) 1994 DTaP/Tdap/Td Vaccine (6 - Tdap) 04/10/1996 04/09/1996, 01/05/1987, 06/20/1983, Additional history exists Hepatitis B Screening 12/16/1999 Regular Well Visit/Exam 18-64 12/16/1999 HPV Vaccines (1 - 3-dose SCDM series) 2008 Influenza Vaccine (#1) 2025 Pneumococcal vaccine <65 Aged Out No longer eligible based on patient's age to complete this topic Insurance [employer] Care Teams Marketing Research Intern Relationship Specialty Start Date End Date Keely Willams NP [address] [place] [id number] PCP - General Family Medicine 10/02/23
--- OUTSIDE RECORDS SUMMARY | 2025-05-14 17:21 | XMS_ITS | Encounter Summary ---
Author Organization [facility] Address [facility] [place] [address] Care Team Providers Care Full Time Staff Interpreter Name Role Phone Steve Contreras MD Primary Care Provider [phone] Mariah Rachel MD Primary Care Provider [phone] Encounter Details Date Type Department Care Team (Late st Contact Info) Description 03/08/2019 Abstract SFL CONVERSION [address] [place] [address] , Generic Conversion, Social History Tobacco Use Types Packs/Day Years Used Date Smoking Tobacco: Never Assessed Sex and Gender Information Value Date Recorded Sex Assigned at Not on file Legal Sex Male 6:24 PM CDT Gender Identity Not on file Sexual Orientation Not on file documented as of this encounter Plan of Treatment Not on file documented as of this encounter Visit Diagnoses Not on filedocumented in this encounter Care Teams Full Time Staff Interpreter Relationship Specialty Start Date End Date Steve Contreras MD [address] [place] [id number] PCP - General FAMILY PRACTICE 03/10/22 01/25/25 Mariah Rachel MD [address] [place] [address] PCP - General FAMILY PRACTICE 01/26/25 documented as of this encounter
[2025-05-14 18:05] VITALS: BP 128/76; PULSE 86; RESP 18; TEMP 36.9; O2SAT 99
--- NOTE | 2025-05-14 18:14 | ED.SKABFB ---
HPI - Skin/Abscess/Foreign Bdy General Chief complaint: Skin/Abscess/Foreign Body <Susana Berrios APRN - Last Filed: 05/14/25 18:21> Stated complaint: abcess to left elbow, buttocks <Susana Berrios APRN - Last Filed: 05/14/25 18:21> Time Seen by Provider: 05/14/25 18:10 <Susana Berrios APRN - Last Filed: 05/14/25 18:21> Focused HPI: Patient is a 44-year-old male who presents to the ER with an abscess on his left elbow and right posterior thigh. He reports he 1st noticed his left elbow infection approximately 1 week ago patient. Patient 1st noticed his right thigh abscess 3 days ago. He endorses drainage and pain from both sites. Patient reports he had a fever of 100.6 at home and took some ibuprofen. He reports his was recently diagnosed with a spider bite and treated with oral antibiotics. Patient denies any medical history relevant to this ER visit. GENERAL: Well-appearing, well-nourished, and in mild distress d/t pain. HEAD: Normocephalic, atraumatic. CHEST: Clear to auscultation. ?No respiratory distress. HEART: Regular rate and rhythm.? NEURO: ?Alert and oriented x3. SKIN: L elbow area red, tight skin with pinpoint head, no visible drainage. R posterior thigh open lesion (approximately dime-sized) with surrounding edema and redness (tennis ball sized) Patient screened in triage and initial orders placed.? ?Additional care and disposition to be based upon?diagnostic testing and treatment. <Susana Berrios APRN - Last Filed: 05/14/25 18:21> Patient is a 44-year-old male who presents to the ER with an abscess on his left elbow and right posterior thigh. He reports he 1st noticed his left elbow infection approximately 1 week ago patient. Patient 1st noticed his right thigh abscess 3 days ago. He endorses drainage and pain from both sites. Patient reports he had a fever of 100.6 at home and took some ibuprofen. He reports his was recently diagnosed with a spider bite and treated with oral antibiotics. Patient denies any medical history relevant to this ER visit. Patient states that he was in [place] right before the symptoms started and had some insect bites at that time and thinks this could be from that. No other traumatic injuries. He did have some night sweats and fever last night which responded to Tylenol. He himself has not been on any recent antibiotics or steroids. GENERAL: Well-appearing, well-nourished, and in mild distress d/t pain. HEAD: Normocephalic, atraumatic. CHEST: Clear to auscultation. ?No respiratory distress. HEART: Regular rate and rhythm.? NEURO: ?Alert and oriented x3. SKIN: L elbow area red, tight skin with pinpoint head, no visible drainage. R posterior thigh open lesion (approximately dime-sized) with surrounding edema and redness (tennis ball sized) Patient screened in triage and initial orders placed.? ?Additional care and disposition to be based upon?diagnostic testing and treatment. <Dwayne Kerr MD - Last Filed: 05/15/25 06:14> Related Data Home medications: Home Medications ?Medication ?Instructions ?Recorded ?Confirmed ?Last Taken ?Type atorvastatin 20 mg tablet 20 mg PO DAILY 04/04/21 09/25/23 Unknown History hydrochlorothiazide 12.5 mg tablet 12.5 mg PO DAILY 04/04/21 09/25/23 Unknown History lisinopril 10 mg tablet 10 mg PO DAILY 04/04/21 09/25/23 Unknown History sertraline 50 mg tablet 50 mg PO DAILY 04/04/21 09/25/23 Unknown History <Susana Berrios APRN - Last Filed: 05/14/25 18:21> Allergies/Adverse reactions: Allergies Allergy/AdvReac Type Severity Reaction Status Date / Time No Known Allergies Allergy Verified 05/14/25 18:09 <Susana Berrios APRN - Last Filed: 05/14/25 18:21> Review of Systems Review of Systems: As reviewed above in HPI <Dwayne Kerr MD - Last Filed: 05/15/25 06:14> PMFSH Past Medical History Medical History: Medical History Kidney stone on left side <Susana Berrios APRN - Last Filed: 05/14/25 18:21> Surgical History Surgical History: Surgical History H/O hand surgery H/O lithotripsy <Susana Berrios, MARRIAGE COUNSELOR - Last Filed: 05/14/25 18:21> Social History Social History: Social History Smoking status: Never smoker Alcohol intake: never Substance use: never <Susana Berrios, MARRIAGE COUNSELOR - Last Filed: 05/14/25 18:21> Exam Narrative: GENERAL: Well-appearing, well-nourished, and in mild distress d/t pain. HEAD: Normocephalic, atraumatic. CHEST: Clear to auscultation. ?No respiratory distress. HEART: Regular rate and rhythm.? NEURO: ?Alert and oriented x3. SKIN: L elbow area red, tight skin with pinpoint head, no visible drainage. R posterior thigh open lesion (approximately dime-sized) with surrounding edema and redness (tennis ball sized) Signs of recent purulent drainage. No active bleeding or drainage with palpation. No expressed pus. <Dwayne Kerr MD - Last Filed: 05/15/25 06:14> Course Vital Signs Vital signs: Vital Signs Temperature 36.9 C 05/14/25 18:05 Pulse Rate 86 05/14/25 18:05 Respiratory Rate 18 05/14/25 18:05 Blood Pressure 128/76 05/14/25 18:05 Pulse Oximetry 99 05/14/25 18:05 Oxygen Delivery Room Air 05/14/25 18:05 Temperature 36.4 C 05/15/25 01:15 Pulse Rate 76 05/15/25 01:15 Respiratory Rate 16 05/15/25 01:15 Blood Pressure 120/73 05/15/25 01:15 Pulse Oximetry 98 05/15/25 01:15 Oxygen Delivery Room Air 05/14/25 18:05 <Susana Berrios MARRIAGE COUNSELOR - Last Filed: 05/14/25 18:21> Vital Signs Temperature 36.9 C 05/14/25 18:05 Pulse Rate 86 05/14/25 18:05 Respiratory Rate 18 05/14/25 18:05 Blood Pressure 128/76 05/14/25 18:05 Pulse Oximetry 99 05/14/25 18:05 Oxygen Delivery Room Air 05/14/25 18:05 Temperature 36.4 C 05/15/25 01:15 Pulse Rate 76 05/15/25 01:15 Respiratory Rate 16 05/15/25 01:15 Blood Pressure 120/73 05/15/25 01:15 Pulse Oximetry 98 05/15/25 01:15 Oxygen Delivery Room Air 05/14/25 18:05 <Dwayne Kerr MD - Last Filed: 05/15/25 06:14> Procedures Abscess I/D lower extremity: Date of Incision: 05/14/25 <Dwayne Kerr MD - Last Filed: 05/15/25 06:14> Time of Incision: 23:00 <Dwayne Kerr MD - Last Filed: 05/15/25 06:14> Side (if applicable): right <Dwayne Kerr MD - Last Filed: 05/15/25 06:14> Sedation/analgesia: none <Dwayne Kerr MD - Last Filed: 05/15/25 06:14> Local Anesthetic: lidocaine 2% <Dwayne Kerr MD - Last Filed: 05/15/25 06:14> Amount of anesthesia used (mL): 5 <Dwayne Kerr MD - Last Filed: 05/15/25 06:14> Technique: incised with #11 blade and probed loculations <Dwayne Kerr MD - Last Filed: 05/15/25 06:14> Amount of fluid expressed (mL): 5 <Dwayne Kerr MD - Last Filed: 05/15/25 06:14> Irrigation: Yes <Dwayne Kerr MD - Last Filed: 05/15/25 06:14> Packing used?: iodoform <Dwayne Kerr MD - Last Filed: 05/15/25 06:14> I&D Results: Pus and Blood <Dwayne Kerr MD - Last Filed: 05/15/25 06:14> MDM - Skin/Abscess/Foreign Bdy [facility] Narrative Medical decision making narrative: Patient is a 44-year-old male who presents to the ER with an abscess on his left elbow and right posterior thigh. He reports he 1st noticed his left elbow infection approximately 1 week ago patient. Patient 1st noticed his right thigh abscess 3 days ago. He endorses drainage and pain from both sites. Patient reports he had a fever of 100.6 at home and took some ibuprofen. He reports his was recently diagnosed with a spider bite and treated with oral antibiotics. Patient denies any medical history relevant to this ER visit. Patient states that he was in [place] right before the symptoms started and had some insect bites at that time and thinks this could be from that. No other traumatic injuries. He did have some night sweats and fever last night which responded to Tylenol. He himself has not been on any recent antibiotics or steroids. patient is not any visible distress. Afebrile. Mildly tachycardic but normal blood pressure. He has a recent sign of infection in his left elbow on the outer aspect of does not appear to have any fluctuance or drainable collection of fluids. He has good range of motion of the elbow without any restriction. No signs of septic arthritis there. Most likely infected bug bite given the examination findings. His right posterior thigh is more concerning with a large abscess with pinpoint Head with recent signs of purulent drainage. Tender to palpation warm. No streaking lymphadenopathy. Seems isolated and likely secondary to bug bites given the historical features. X-rays were obtained, laboratory studies obtained, CT of the right thigh for better definition of the large abscess for potential incision and drainage was ordered. He was started on doxycycline, fluids and given Ibuprofen IV. Patient re-evaluated after interventions. Superficial abscess noted on the right thigh CT. This was incised and drained at bedside with small amount of packing material left in. Patient tolerated the procedure well. Vital signs are all normal. Laboratory studies no significant leukocytosis or significant concerning lab findings. Patient comfortable with plan for discharge with oral antibiotic therapy and return precautions if worsening. <Dwayne Kerr MD - Last Filed: 05/15/25 06:14> Lab Data Result diagrams: 05/14/25 18:45 05/14/25 18:45 <Susana Kimballuble, MARRIAGE COUNSELOR - Last Filed: 05/14/25 18:21> Labs: Lab Results 05/14/25 Range/Units 18:45 WBC 11.5 H (4.5-10.0) K/mm3 RBC 5.63 (4.6-6.20) M/mm3 Hgb 15.8 (14.0-18.0) g/dL Hct 47.5 (42.0-52.0) % MCV 84.4 (80-100) fl MCH 28.1 (26-34) pg MCHC 33.3 (32-36) g/dl RDW 13.2 (11.5-14.5) % Plt Count 207 (150-375) k/mm3 MPV 9.5 (7.4-10.4) fl Immature Gran % (Auto) 0.2 (0-0.5) % Neut % (Auto) 75.5 H (45.5-73.1) % Lymph % (Auto) 14.8 L (18.3-44.2) % [place] % (Auto) 8.9 H (2.6-8.5) % Eos % (Auto) 0.4 (0-4.4) % Baso % (Auto) 0.2 (0.2-1.2) % Lymph # (Auto) 1.70 (0.9-3.2) K/mm3 [place] # (Auto) 1.0 H (0.1-0.6) K/mm3 Eos # (Auto) 0.1 (0-0.3) K/mm3 Baso # (Auto) 0.0 (0.0-0.1) K/mm3 Abs Immat Gran (auto) 0.02 (0.00-0.031) K/mm3 Absolute Neuts (auto) 8.7 H (1.3-6.7) K/mm3 Absolute Nucleated RBC 0.000 (0.0-0.012) K/mm3 Nucleated RBC % 0.0 (0.0-0.2) % PT 13.6 (11.1-14.7) Seconds INR 1.0 APTT 32.0 (22.3-36.8) Seconds Sodium 135 L (137-145) mmol/L Potassium 4.0 (3.4-5.0) mmol/L Chloride 96 L (98-107) mmol/L Carbon Dioxide 28 (22-30) mmol/L Anion Gap 11 (4-12) mmol/L BUN 15 (9-20) mg/dL Creatinine 1.09 (0.7-1.3) mg/dL Estim Creat Clear Calc 100 ml/min Estimated GFR > 60 (59 - ) Glucose 82 (65-110) mg/dL Lactic Acid 0.9 (0.7-2.0) mmol/L Calcium 9.4 (8.4-10.2) mg/dL Total Bilirubin 3.4 H (0.2-1.3) mg/dL AST 36 (17-59) U/L ALT 38 (6-50) U/L Alkaline Phosphatase 57 (38-126) U/L C-Reactive Protein 8.0 H (<1.0) mg/dL Total Protein 9.1 H (6.3-8.2) g/dL Albumin 5.2 H (3.5-5.1) g/dL <Susana Berrios, MARRIAGE COUNSELOR - Last Filed: 05/14/25 18:21> Lab Results 05/14/25 Range/Units 18:45 WBC 11.5 H (4.5-10.0) K/mm3 RBC 5.63 (4.6-6.20) M/mm3 Hgb 15.8 (14.0-18.0) g/dL Hct 47.5 (42.0-52.0) % MCV 84.4 (80-100) fl MCH 28.1 (26-34) pg MCHC 33.3 (32-36) g/dl RDW 13.2 (11.5-14.5) % Plt Count 207 (150-375) k/mm3 MPV 9.5 (7.4-10.4) fl Immature Gran % (Auto) 0.2 (0-0.5) % Neut % (Auto) 75.5 H (45.5-73.1) % Lymph % (Auto) 14.8 L (18.3-44.2) % [place] % (Auto) 8.9 H (2.6-8.5) % Eos % (Auto) 0.4 (0-4.4) % Baso % (Auto) 0.2 (0.2-1.2) % Lymph # (Auto) 1.70 (0.9-3.2) K/mm3 [place] # (Auto) 1.0 H (0.1-0.6) K/mm3 Eos # (Auto) 0.1 (0-0.3) K/mm3 Baso # (Auto) 0.0 (0.0-0.1) K/mm3 Abs Immat Gran (auto) 0.02 (0.00-0.031) K/mm3 Absolute Neuts (auto) 8.7 H (1.3-6.7) K/mm3 Absolute Nucleated RBC 0.000 (0.0-0.012) K/mm3 Nucleated RBC % 0.0 (0.0-0.2) % PT 13.6 (11.1-14.7) Seconds INR 1.0 APTT 32.0 (22.3-36.8) Seconds Sodium 135 L (137-145) mmol/L Potassium 4.0 (3.4-5.0) mmol/L Chloride 96 L (98-107) mmol/L Carbon Dioxide 28 (22-30) mmol/L Anion Gap 11 (4-12) mmol/L BUN 15 (9-20) mg/dL Creatinine 1.09 (0.7-1.3) mg/dL Estim Creat Clear Calc 100 ml/min Estimated GFR > 60 (59 - ) Glucose 82 (65-110) mg/dL Lactic Acid 0.9 (0.7-2.0) mmol/L Calcium 9.4 (8.4-10.2) mg/dL Total Bilirubin 3.4 H (0.2-1.3) mg/dL AST 36 (17-59) U/L ALT 38 (6-50) U/L Alkaline Phosphatase 57 (38-126) U/L C-Reactive Protein 8.0 H (<1.0) mg/dL Total Protein 9.1 H (6.3-8.2) g/dL Albumin 5.2 H (3.5-5.1) g/dL <Dwayne Kerr MD - Last Filed: 05/15/25 06:14> Discharge Plan Discharge Clinical Impression: Abscess of right thigh <Susanafeliberto Berrios APRN - Last Filed: 05/14/25 18:21> Patient Disposition: Home <Susana Berrios APRN - Last Filed: 05/14/25 18:21> Condition: Stable <Susanafeliberto Berrios APRN - Last Filed: 05/14/25 18:21> Instructions: Antibiotic Form, Abscess (ED), Abscess Incision and Drainage (DC) <Susana Berrios APRN - Last Filed: 05/14/25 18:21> Additional Instructions: We performed an incision and drainage of your right thigh abscess and were able to express some purulent material. We did leave a small amount of packing in the wound itself to allow for continued drainage. This is an antibacterial gauze that works for approximately 24 hours and that should be removed and the shower. We left to a small string to be pulled to remove this tomorrow. We have prescribed to oral antibiotics for 7 days as well as anti-inflammatory measures. If you have any worsening symptoms please return to the emergency department otherwise follow-up with regular doctors. <Susana Berrios APRN - Last Filed: 05/14/25 18:21> Patient Language: Thai <Susana Berrios, MARRIAGE COUNSELOR - Last Filed: 05/14/25 18:21> Prescriptions: New ibuprofen 800 mg tablet 800 mg PO TID PRN (Reason: pain) Qty: 30 0RF sulfamethoxazole-trimethoprim [Bactrim DS] 800-160 mg tablet 1 tablet PO Q12H Qty: 14 0RF acetaminophen [Tylenol Extra Strength] 500 mg tablet 1,000 mg PO TID PRN (Reason: pain) Qty: 30 0RF No Action atorvastatin 20 mg tablet 20 mg PO DAILY lisinopril 10 mg tablet 10 mg PO DAILY sertraline 50 mg tablet 50 mg PO DAILY hydrochlorothiazide 12.5 mg tablet 12.5 mg PO DAILY tamsulosin [Flomax] 0.4 mg capsule 0.4 mg PO DAILY Qty: 30 0RF hydrocodone-acetaminophen 5-325 mg tablet 1 tablet PO Q6H PRN (Reason: pain) Qty: 20 0RF cephalexin 500 mg capsule 500 mg PO BID 7 Days Qty: 14 0RF ondansetron 4 mg tablet,disintegrating 4 mg PO Q6H PRN (Reason: nausea and vomiting) Qty: 20 0RF omeprazole 40 mg capsule,delayed release(DR/EC) 40 mg PO DAILY Qty: 60 0RF oxycodone-acetaminophen [Percocet] 10-325 mg tablet 1 tablet PO Q6H PRN (Reason: pain) Qty: 10 0RF <Susana Berrios APRN - Last Filed: 05/14/25 18:21> Follow-up/Referrals: PHYSICIAN NOT ON STAFF,NONSTAFF [Primary Care Provider] - <Susana Berrios APRN - Last Filed: 05/14/25 18:21> Time of Disposition: 00:40 <Susana Berrios APRN - Last Filed: 05/14/25 18:21> 00:40 <Dwayne Kerr MD - Last Filed: 05/15/25 06:14>
[2025-05-14 19:02] LABS: Hematocrit 47.5 % (42.0-52.0); Hemoglobin 15.8 g/dL (14.0-18.0); Immature Granulocyte Percent A 0.2 % (0-0.5); Lymphocytes Absolute Auto 1.70 K/mm3 (0.9-3.2); Mean Corpuscular HGB Conc 33.3 g/dl (32-36); Mean Corpuscular Hemoglobin 28.1 pg (26-34); Mean Corpuscular Volume 84.4 fl (80-100); Nucleated Red Blood Cells Absolute Auto 0.000 K/mm3 (0.0-0.012); Nucleated Red Blood Cells Perc 0.0 % (0.0-0.2); Platelet Count Result 207 k/mm3 (150-375); Red Blood Count 5.63 M/mm3 (4.6-6.20); White Blood Count 11.5 K/mm3 (4.5-10.0)
[2025-05-14 19:11] LABS: Alanine Aminotransferase 38 U/L (6-50); Albumin Level 5.2 g/dL (3.5-5.1); Alkaline Phosphatase 57 U/L (38-126); Anion Gap 11 mmol/L (4-12); Aspartate Amino Transferase 36 U/L (17-59); Bilirubin,Total 3.4 mg/dL (0.2-1.3); Blood Urea Nitrogen 15 mg/dL (9-20); CRP 8.0 mg/dL (<1.0); Calcium 9.4 mg/dL (8.4-10.2); Carbon Dioxide 28 mmol/L (22-30); Chloride 96 mmol/L (98-107); Estimated CRCL calculation 100 ml/min; Estimated Glomerular Filt Rate > 60; Glucose 82 mg/dL (65-110); Potassium 4.0 mmol/L (3.4-5.0); Sodium 135 mmol/L (137-145); Total Protein 9.1 g/dL (6.3-8.2)
[2025-05-14 19:14] LABS: INR 1.0; Prothrombin Time 13.6 Seconds (11.1-14.7)
[2025-05-14 19:15] LABS: Partial Thromboplastin Time 32.0 Seconds (22.3-36.8)
[2025-05-14 19:39] VITALS: BP 122/67; PULSE 105; RESP 18; O2SAT 96
[2025-05-14] MEDS: LACTATED RINGERS 500 ML 999 ML IV CONT (21:32)
[2025-05-14] MEDS: IBUPROFEN IV 800 MG/200 ML 800 MG/200 ML BAG 400 MG IVPB (21:33)
[2025-05-14] MEDS: DOXYCYCLINE IV 100 MG in SODIUM CHLORIDE 0.9% IV 100 ML IVPB (21:33)
--- OUTSIDE RECORDS SUMMARY | 2025-05-14 22:29 | XMS_ITS | Encounter Summary ---
Author Organization [facility] Address [facility] [place] [address] Care Team Providers Care Commercial Baking Teacher Name Role Phone Steve Contreras MD Primary Care Provider [phone] Mariah Rachel MD Primary Care Provider [phone] Encounter Details Date Type Department Care Team (Late st Contact Info) Description 03/08/2019 Abstract SFL CONVERSION [address] [place] [address] , Generic Conversion, Social History [...] on filedocumented in this encounter Care Teams Commercial Baking Teacher Relationship Specialty Start Date End Date Steve Contreras MD [address] [place] [id number] PCP - General FAMILY PRACTICE 03/10/22 01/25/25 Mariah Rachel MD [address] [place] [address] PCP - General FAMILY PRACTICE 01/26/25 documented as of this encounter
--- OUTSIDE RECORDS SUMMARY | 2025-05-14 22:29 | XMS_ITS | Clinical Summary ---
Author Organization [facility] Address [address] [place] [address] Care Team Providers Care Dialysis Technician Name Role Phone WillamsKeely DEEJAY Primary Care Provider [phone] Allergies No known active allergies Social History [...] on file Legal Sex Male 1:00 PM DERMATOLOGICAL SURGEON Gender Identity Not on file Sexual Orientation Not on file Last Filed Vital Signs Vital Sign Reading Time Taken Comments Blood Pressure 130/74 10/03/2023 2:30 AM DERMATOLOGICAL SURGEON Pulse 65 10/03/2023 2:30 AM DERMATOLOGICAL SURGEON Temperature 37 C (98.6 F) 10/03/2023 2:30 AM DERMATOLOGICAL SURGEON Respiratory Rate 18 10/03/2023 2:30 AM DERMATOLOGICAL SURGEON Oxygen Saturation 97% 10/03/2023 2:30 AM DERMATOLOGICAL SURGEON Inhaled Oxygen Concentration - - Weight 133.8 kg (295 lb) 10/02/2023 4:39 PM DERMATOLOGICAL SURGEON Height - - Body Mass Index - [...] patient's age to complete this topic Insurance [facility] [place] [facility] [place] Care Teams Dialysis Technician Relationship Specialty Start Date End Date Keely Willams NP [address] [place] [address] PCP - General Family Medicine 10/02/23
--- OUTSIDE RECORDS SUMMARY | 2025-05-14 22:29 | XMS_ITS | Clinical Summary ---
Author Organization [facility] Address [address] [place] [address] Care Team Providers Care Collections Agent Name Role Phone Mariah Rachel MD Primary Care Provider [phone] Allergies No known active allergies Medications lisinopril [...] patient's age to complete this topic Insurance [facility] Care Teams Collections Agent Relationship Specialty Start Date End Date Mariah Rachel MD [facility] [place] [employer] [place] [address] PCP - General FAMILY PRACTICE 01/26/25
[2025-05-15] MEDS: LIDOCAINE 2% LOCAL INJ 20 ML VIAL 10 ML INFILTRATE (00:45)
[2025-05-15 01:15] VITALS: BP 120/73; PULSE 76; RESP 16; TEMP 36.4; O2SAT 98
== END 2025-05-15 01:17 | disposition home or self-care (01) ==
PROVIDERS: Registered Nurse; Emergency Provider Student in an Organized Health Care Education/Training Program
DX: L02.415 Cutaneous abscess of right lower limb (principal); Z87.442 Personal history of urinary calculi
CPT/HCPCS: 10061; 36415; 73080; 73701; 80053; 83605; 85025; 85610; 85730; 86140; 87040; 96365; 99284; J1741; J2003; J7120